=== PATIENT | female | born 1950 | race African-American/Black ===

== ENCOUNTER 2018-06-22 13:29 | Emergency (ER) | payer MEDICAID ==
[~2018-06-22] VITALS: Ht 167.6 cm; Wt 116.0 kg
[2018-06-22 13:47] VITALS: BP 162/93
== END 2018-06-22 15:42 | disposition left against medical advice (07) ==
LOC: ER 13:29
DX: R51 Headache (principal); Z53.21 Procedure and treatment not carried out due to patient leaving prior to being seen by health care provider